=== PATIENT | male | born 1980 | race Caucasian/White ===

== ENCOUNTER 2017-07-23 21:06 | Observation (INO) | payer OTHER ==
[~2017-07-23] VITALS: Ht 175.3 cm; Wt 65.8 kg
[~2017-07-23 21:06] MED LIST: ADDERALL20 MG PO; CIMETIDINE200 MG PO; CLONAZEPAM0.5 MG PO; PERCOCET 5/31 TABLET PO; TORADOL10 MG PO
[2017-07-23 22:23] LABS: BASOPHIL (%) 0.8 % (0-1); BASOPHIL COUNT 0.1 K/uL (0-0.1); EOSINOPHIL COUNT 0.4 K/uL (0-0.3); IMMATURE GRANULOCYTE (%) 0.2 % (0.0-0.7); LYMPHOCYTE (%) 27.6 % (15-42); LYMPHOCYTE COUNT 1.8 K/uL (1.0-2.8); MCH 30.9 PG (29.0-34.0); MCHC 34.9 G/DL (30.0-36.0); MCV 88.5 FL (86-99); MONOCYTE (%) 7.8 % (3-12); MONOCYTE COUNT 0.5 K/uL (0-0.8); NEUTROPHIL (%) 57.6 % (45-76); NEUTROPHIL COUNT 3.7 K/uL (1.8-6.4); PLATELET COUNT 196 K/uL (156-360); RBC DIS.WIDTH-CV 11.9 % (11.8-14.6); RBC DIS.WIDTH-SD 38.3 % (39-53); RED BLOOD COUNT 4.86 M/uL (4.00-5.50); WHITE BLOOD COUNT 6.4 K/uL (4.1-10.2)
[2017-07-23 22:33] LABS: ALBUMIN 4.5 g/dL (3.2-4.8); CHLORIDE 111 mEq/L (99-109); POTASSIUM 3.5 mEq/L (3.7-5.4); SODIUM 141 mEq/L (136-147)
[2017-07-23 22:35] LABS: GLUCOSE 69 mg/dL (70-99); TOTAL PROTEIN 7.2 g/dL (6.4-8.3)
[2017-07-23 22:37] LABS: TOTAL BILIRUBIN 0.5 mg/dL (0.0-1.0)
[2017-07-23 22:38] LABS: ALKALINE PHOSPHATASE 62 IU/L (3-129)
[2017-07-23 22:39] LABS: GFR ESTIMATE (CALCULATED) > 59 mL/min/ (58.99-99999)
[2017-07-23 22:40] LABS: AST (GOT) 20 IU/L (2-34); UREA NITROGEN (BUN) 14 mg/dL (9-23)
[2017-07-23 22:42] LABS: ALT (GPT) 16 IU/L (3-49); LIPASE 21 U/L (1.0-51.0)
[2017-07-24] MEDS ORDERED: ZYRTEC10 M3 PO (01:39)
[2017-07-24] MEDS ORDERED: INDERAL10 MG PO (01:39)
[2017-07-24 02:02] LABS: CARBON DIOXIDE (BICARBONATE) 25.5 MEQ/L (20-31)
[2017-07-24] MEDS ORDERED: ZOFRAN ODT4 MG PO (03:49)
[2017-07-24 04:09] VITALS: BP 126/78
== END 2017-07-24 04:11 | disposition home or self-care (01) ==
LOC: EME → EDBD 21:06 → EME 21:06 → EDOF 07-24 01:20 → ENRESERV 07-24 01:20 → EDOF 07-24 01:20 → ENRESERV 07-24 05:33 → CANRESERV 07-24 05:33
PROVIDERS: Emergency Medicine; Physician Assistant Medical
DX: R11.2 Nausea with vomiting, unspecified (principal); R74.0 Nonspecific elevation of levels of transaminase and lactic acid dehydrogenase [LDH]; K21.9 Gastro-esophageal reflux disease without esophagitis; N20.0 Calculus of kidney; M26.609 Unspecified temporomandibular joint disorder, unspecified side; R51 Headache; H93.19 Tinnitus, unspecified ear
CPT/HCPCS: 74177; 80053; 82803; 83605; 83690; 85025; 99281; 99285; C9113; G0378; J1630; J2405; J2765; J7030